=== PATIENT | male | born 1990 | race Caucasian/White ===

== ENCOUNTER 2017-05-17 23:27 | Observation (INO) | payer OTHER ==
--- NOTE | 2017-05-18 00:54 | EDM.PDOC ---
ED HPI GENERAL MEDICAL PROBLEM - General Chief Complaint: General Stated Complaint: tingly,palpatations Time Seen by Provider: 05/17/17 23:50 Source of Information: Reports: Patient - History of Present Illness INITIAL COMMENTS - FREE TEXT/NARRATIVE: 26-year-old male office presents to emergency room with complaints of sensorimotor symptoms, shaking and/or spasming in his arms and legs. No loss of consciousness, abrupt mental status changes briefly and shaking of his extremities. He symptoms began approximately 11:00 this evening. This was witnessed by another officer he was talking to while vehicles were part. Patient initially thought he felt some chest pain or discomfort which would be brief and would also experience some brief episodes where he could not remember. He is otherwise very healthy. He does not take any medications on a regular basis. He does report that he's had a lot of stress as of recently. He does not smoke and does not drink on a regular basis. He denies any recent trauma or head trauma no history of concussions in the past. He has no history of a seizure disorder. No significant cardiac history in his family his mother' s or father's side. Onset: Today, Sudden Onset Date: 05/18/17 Onset Time: 23:00 Duration: Minutes: Location: Reports: Generalized Quality: Reports: Sharp Severity: Moderate Improves with: Reports: None Worsens with: Reports: None Associated Symptoms: Reports: Chest Pain, Nausea/Vomiting, Seizure, Other ( tingling). Denies: Shortness of Breath, Syncope - Related Data Allergies Allergy/AdvReac Type Severity Reaction Status Date / Time Sulfa (Sulfonamide Allergy Cannot Verified 05/17/17 23:58 Antibiotics) Remember Home Meds: Home Meds . [No Known Home Meds] 05/17/17 [History] ED ROS GENERAL - Review of Systems Review Of Systems: See Below Constitutional: Reports: No Symptoms HEENT: Reports: No Symptoms Respiratory: Reports: No Symptoms Cardiovascular: Reports: Chest Pain Endocrine: Reports: No Symptoms GI/Abdominal: Reports: Nausea : Reports: No Symptoms Musculoskeletal: Reports: Other (muscle spasm, jerking) Skin: Reports: No Symptoms Neurological: Reports: Headache, Seizure, Tingling, Tremors, Trouble Speaking Psychiatric: Reports: No Symptoms Hematologic/Lymphatic: Reports: No Symptoms Immunologic: Reports: No Symptoms ED EXAM, GENERAL - Physical Exam Exam: See Below Exam Limited By: Altered Mental Status General Appearance: Alert, WD/WN, No Apparent Distress Eye Exam: Bilateral Eye: EOMI, PERRL Ears: Hearing Grossly Normal Nose: Normal Inspection Throat/Mouth: Normal Inspection, Normal Lips, Normal Teeth, Normal Oropharynx, Normal Voice, No Airway Compromise Head: Atraumatic, Normocephalic Neck: Normal Inspection, Supple, Full Range of Motion Respiratory/Chest: No Respiratory Distress, Lungs Clear Cardiovascular: Normal Peripheral Pulses, Regular Rate, Rhythm Peripheral Pulses: 2+: Carotid (L), Carotid (R), Radial (L), Radial (R), Dorsalis Pedis (L), Dorsalis Pedis (R) GI/Abdominal: Normal Bowel Sounds, Soft, Non-Tender Back Exam: Normal Inspection Extremities: Normal Inspection, Normal Capillary Refill Neurological: Alert, CN II-XII Intact, No Motor/Sensory Deficits, Slow to Respond, Memory Loss Remote Events Psychiatric: Normal Affect, Normal Mood Skin Exam: Warm, Dry, Intact, Normal Color Lymphatic: No Adenopathy EKG INTERPRETATION EKG Date: 05/18/17 Time: 00:30 Rhythm: NSR [place]: Normal P-Wave: Present QRS: Normal ST-T: Normal QT: Normal Comparison: No Change EKG Interpretation Comments: Normal sinus rhythm Course - Vital Signs Last Recorded V/S: Last Vital Signs Temp 99.4 F 05/17/17 23:30 Pulse 88 05/17/17 23:30 Resp 18 05/17/17 23:30 BP 152/70 H 05/17/17 23:30 Pulse Ox 99 05/17/17 23:30 - Orders/Labs/Meds Orders: Active Orders 24 hr Category Date Time Status Patient Status [ADT] Routine ADT 05/18/17 01:55 Ordered EKG Documentation Completion [RC] ASDIRECTED Care 05/18/17 00:23 Active Vital Signs [RC] Q4H Care 05/18/17 01:55 Ordered Vital Signs [RC] Q4H Care 05/18/17 01:59 Ordered Regular Diet [DIET] Diet 05/18/17 Breakfast Ordered Head wo Cont [CT] Stat Exams 05/18/17 00:12 Taken Acetaminophen [Tylenol] Med 05/18/17 01:59 Ordered 650 mg PO Q4H PRN Calcium Carbonate [Tums] Med 05/18/17 01:59 Ordered 500 mg PO Q4H PRN Magnesium Hydroxide [Milk of Magnesia] Med 05/18/17 01:59 Ordered 30 ml PO BID PRN EKG 12 Lead [EK] Routine Ther 05/18/17 00:22 Ordered Medication Orders Acetaminophen (Tylenol) 650 mg PO Q4H PRN PRN Reason: analgesia/fever Calcium Carbonate/Glycine (Tums) 500 mg PO Q4H PRN PRN Reason: Dyspepsia Magnesium Hydroxide (Milk Of Magnesia) 30 ml PO BID PRN PRN Reason: Constipation Labs: Laboratory Tests 05/18/17 05/18/17 05/18/17 Range/Units 00:30 00:30 00:30 WBC 12.1 H (5.0-10.0) 10^3/uL RBC 4.51 (4.50-6.00) 10^6/uL Hgb 13.3 (13.0-17.0) g/dL Hct 40.0 (40.0-52.0) % MCV 88.8 (82.0-92.0) fL MCH 29.6 (27.0-31.0) pg MCHC 33.3 (32.0-36.0) g/dL RDW 11.8 (11.5-14.5) % Plt Count 205 (150-300) 10^3/uL MPV 9.6 (7.4-10.4) fL Neut % (Auto) 64.3 (50.0-70.0) % Lymph % (Auto) 25.6 (20.0-40.0) % Richardson % (Auto) 5.8 (2.0-8.0) % Eos % (Auto) 3.8 H (1.0-3.0) % Baso % (Auto) 0.5 (0.0-1.0) % Neut # (Auto) 7.7 H (2.5-7.0) 10^3/uL Lymph # (Auto) 3.1 (1.0-4.0) 10^3/uL Richardson # (Auto) 0.7 (0.1-0.8) 10^3/uL Eos # (Auto) 0.5 H (0.1-0.3) 10^3/uL Baso # (Auto) 0.1 (0.0-0.1) 10^3/uL D-Dimer, Quantitative 234 (<400) ng/mL Sodium 143 (136-145) mmol/L Potassium 3.5 (3.3-5.3) mmol/L Chloride 104 (98-115) mmol/L Carbon Dioxide 25.5 (21.0-32.0) mmol/L BUN 18 (6-25) mg/dL Creatinine 1.16 (0.51-1.17) mg/dL Est Cr Clr Drug Dosing 105.92 mL/min Estimated GFR (MDRD) > 60 mL/min Glucose 107 (70-110) mg/dL Calcium 9.4 (8.7-10.3) mg/dL Troponin I < 0.04 (0.00-0.070) ng/mL Meds: Medications Generic Name Dose Route Start Last Admin Trade Name Freq PRN Reason Stop Dose Admin Acetaminophen 650 mg 05/18/17 01:59 Tylenol PO Q4H PRN analgesia/fever Calcium Carbonate/Glycine 500 mg 05/18/17 01:59 Tums PO Q4H PRN Dyspepsia Magnesium Hydroxide 30 ml 05/18/17 01:59 Milk Of Magnesia PO BID PRN Constipation Discontinued Medications Generic Name Dose Route Start Last Admin Trade Name Freq PRN Reason Stop Dose Admin Acetaminophen 1,000 mg 05/18/17 00:59 05/18/17 01:19 Tylenol Extra Strength PO 05/18/17 01:00 1,000 mg ONETIME ONE Administration Lorazepam 1 mg 05/18/17 01:00 05/18/17 01:17 Ativan IVPUSH 05/18/17 01:01 1 mg ONETIME ONE Administration Lorazepam 1 mg 05/18/17 01:45 05/18/17 01:59 Ativan IVPUSH 05/18/17 01:46 1 mg ONETIME ONE Administration Ondansetron HCl 4 mg 05/18/17 01:00 05/18/17 01:00 Zofran IVPUSH 05/18/17 01:01 4 mg ONETIME ONE Administration - Radiology Interpretation Free Text/Narrative:: CT of the head without IV contrast Findings: Brain unremarkable. No hemorrhage. No significant white matter disease. No edema Ventricles unremarkable Bones and joints unremarkable no acute fracture Soft tissues unremarkable Sinuses mild mucosal thickening in left maxillary, frontal and anterior ethmoid sinuses Mastoid air cells are unremarkable Impression: No acute findings Departure - Departure Time of Disposition: 02:10 Disposition: Refer to Observation Condition: Good Clinical Impression: Seizure disorder, complex partial Qualifiers: Epilepsy type: partial symptomatic Intractability: not intractable Status epilepticus: without status epilepticus Qualified Code(s): G40.209 - Localization-related (focal) (partial) symptomatic epilepsy and epileptic syndromes with complex partial seizures, not intractable, without status epilepticus - Discharge Information Forms: ED Department Discharge - My Orders Last 24 Hours: My Active Orders 05/18/17 00:12 Head wo Cont [CT] Stat 05/18/17 00:22 EKG 12 Lead [EK] Routine 05/18/17 00:23 EKG Documentation Completion [RC] ASDIRECTED 05/18/17 01:55 Patient Status [ADT] Routine Vital Signs [RC] Q4H 05/18/17 01:59 Vital Signs [RC] Q4H Acetaminophen [Tylenol] 650 mg PO Q4H PRN Calcium Carbonate [Tums] 500 mg PO Q4H PRN Magnesium Hydroxide [Milk of Magnesia] 30 ml PO BID PRN 05/18/17 Breakfast Regular Diet [DIET] - Assessment/Plan Last 24 Hours: My Active Orders 05/18/17 00:12 Head wo Cont [CT] Stat 05/18/17 00:22 EKG 12 Lead [EK] Routine 05/18/17 00:23 EKG Documentation Completion [RC] ASDIRECTED 05/18/17 01:55 Patient Status [ADT] Routine Vital Signs [RC] Q4H 05/18/17 01:59 Vital Signs [RC] Q4H Acetaminophen [Tylenol] 650 mg PO Q4H PRN Calcium Carbonate [Tums] 500 mg PO Q4H PRN Magnesium Hydroxide [Milk of Magnesia] 30 ml PO BID PRN 05/18/17 Breakfast Regular Diet [DIET] Assessment:: Complex partial seizure Plan: 1. Replaced patient on observation status. This is a new onset of seizure no prior history of seizure disorder. Patient has not had complete resolve of symptoms. 2. Will proceed with neurology consultation and likely EEG. 3. We'll begin him on a benzodiazepine as a first line for treatment of this seizure.
[2017-05-18] MEDS ORDERED: Acetaminophen 500 MG Tab PO ONE (00:59)
[2017-05-18] MEDS ORDERED: LORazepam 2 MG/ML SDV IVPUSH ONE ×3 (01:00→10:18)
[2017-05-18] MEDS ORDERED: Ondansetron 4 MG/2 ML SDV IVPUSH ONE (01:00)
[2017-05-18 01:09] LABS: CHLORIDE,CL 104 mmol/L (98-115); SODIUM,NA 143 mmol/L (136-145)
[2017-05-18] MEDS ORDERED: Calcium Carbonate 500 MG Tab.Chew PO PRN (01:59)
[2017-05-18] MEDS ORDERED: Acetaminophen 325 MG Tab PO PRN (01:59)
[2017-05-18] MEDS ORDERED: Magnesium Hydroxide 400 MG/5 ML Susp 30 ML Cup PO PRN (01:59)
[2017-05-18] MEDS ORDERED: LORazepam 2 MG/ML SDV IVPUSH PRN (02:57)
[2017-05-18] MEDS ORDERED: Sodium Chloride 0.9% 5 ML Syringe FLUSH PRN (04:18)
[2017-05-18] MEDS ORDERED: Phenytoin 100 MG Cap.ER PO ONE (11:31)
--- NOTE | 2017-05-18 12:27 | PCM.PN ---
- General Info Date of Service: 05/18/17 Admission Dx/Problem (Free Text): seizure disorder Functional Status: Reports: Pain Controlled, Tolerating Diet, Ambulating, Urinating - Review of Systems General: Reports: No Symptoms HEENT: Reports: No Symptoms Pulmonary: Reports: No Symptoms Cardiovascular: Reports: No Symptoms Gastrointestinal: Reports: No Symptoms Genitourinary: Reports: No Symptoms Musculoskeletal: Reports: No Symptoms Skin: Reports: No Symptoms Neurological: Reports: Seizure (better this am. sleep well), Tingling. Denies: Confusion, Dizziness, Trouble Speaking, Change in Speech Psychiatric: Reports: No Symptoms - Patient Data Vitals - Most Recent: Last Vital Signs Temp 96.9 F 05/18/17 11:00 Pulse 84 05/18/17 11:00 Resp 20 05/18/17 11:00 BP 116/67 05/18/17 11:00 Pulse Ox 96 05/18/17 11:00 Weight - Most Recent: 205 lb 5 oz I&O - Last 24 Hours: Intake & Output 05/17/17 05/18/17 05/18/17 22:59 06:59 14:59 Intake Total 0 Balance 0 Med Orders - Current: Current Medications Acetaminophen (Tylenol) 650 mg PO Q4H PRN PRN Reason: analgesia/fever Last Admin: 05/18/17 10:34 Dose: 650 mg Calcium Carbonate/Glycine (Tums) 500 mg PO Q4H PRN PRN Reason: Dyspepsia Lorazepam (Ativan) 0.5 mg IVPUSH Q6H PRN PRN Reason: Seizures Magnesium Hydroxide (Milk Of Magnesia) 30 ml PO BID PRN PRN Reason: Constipation Sodium Chloride (Syrex Flush) 5 ml FLUSH Q8HR PRN PRN Reason: Keep Vein Open Discontinued Medications Acetaminophen (Tylenol Extra Strength) 1,000 mg PO ONETIME ONE Stop: 05/18/17 01:00 Last Admin: 05/18/17 01:19 Dose: 1,000 mg Lorazepam (Ativan) 1 mg IVPUSH ONETIME ONE Stop: 05/18/17 01:01 Last Admin: 05/18/17 01:17 Dose: 1 mg Lorazepam (Ativan) 1 mg IVPUSH ONETIME ONE Stop: 05/18/17 01:46 Last Admin: 05/18/17 01:59 Dose: 1 mg Lorazepam (Ativan) 1 mg IVPUSH ONETIME ONE Stop: 05/18/17 10:19 Last Admin: 05/18/17 10:36 Dose: 1 mg Ondansetron HCl (Zofran) 4 mg IVPUSH ONETIME ONE Stop: 05/18/17 01:01 Last Admin: 05/18/17 01:00 Dose: 4 mg Phenytoin Sodium (Phenytoin) 400 mg PO ONETIME ONE Stop: 05/18/17 11:32 Last Admin: 05/18/17 12:00 Dose: 400 mg - Exam General: Alert, Oriented, No Acute Distress HEENT: Pupils Equal, EOMI Neck: Supple Lungs: Clear to Auscultation Cardiovascular: Regular Rate, Regular Rhythm GI/Abdominal Exam: Soft Back Exam: Normal Inspection Extremities: Normal Inspection Peripheral Pulses: 2+: Dorsalis Pedis (L), Dorsalis Pedis (R) Skin: Warm, Dry, Intact Neurological: No New Focal Deficit Psy/Mental Status: Alert, Normal Affect, Normal Mood - Problem List Review Problem List Initiated/Reviewed/Updated: Yes - My Orders Last 24 Hours: My Active Orders 05/17/17 23:35 EKG 12 Lead [EK] Routine 05/18/17 01:59 Acetaminophen [Tylenol] 650 mg PO Q4H PRN Calcium Carbonate [Tums] 500 mg PO Q4H PRN Magnesium Hydroxide [Milk of Magnesia] 30 ml PO BID PRN 05/18/17 02:57 LORazepam [Ativan] 0.5 mg IVPUSH Q6H PRN 05/18/17 04:18 Sodium Chloride 0.9% [Syrex Flush] 5 ml FLUSH Q8HR PRN 05/18/17 Breakfast Regular Diet [DIET] - Assessment Assessment:: seizure - Plan Plan:: 1. Given 1mg iv lorazepam this am. Did not get in prn last night. Symtoms improved. Will start on phenytoin 400mg initially today, than 100mg TID beginning tomorrow. Will continue lorazepam 0.5mg po Q8hrs 2. F/u with Dr Martin on Saturday and Neurology consult with EEG. 3. Discharge today if seizures resolved. 4. No driving until f/u appointments. 5. Rest over weekend.
[2017-05-18] MEDS ORDERED: LORazepam 0.5 MG Tab PO PRN (13:00)
[2017-05-18] MEDS: Phenytoin 100 MG Cap.ER PO SCH (15:40)
[2017-05-18] MEDS ORDERED: LORazepam 0.5 MG Tab ONE (15:58)
== END 2017-05-18 16:40 | disposition home or self-care (01) ==
LOC: KA.ED 23:27 → KA.MS 05-18 01:55 → UNDOADMOB 05-18 01:55 → UNDODISOB 05-18 16:40
PROVIDERS: ADMIT Physician Assistant; ATTEND Physician Assistant
DX: G40.209 Localization-related (focal) (partial) symptomatic epilepsy and epileptic syndromes with complex partial seizures, not intractable, without status epilepticus (principal); Z88.2 Allergy status to sulfonamides; Z79.899 Other long term (current) drug therapy
CPT/HCPCS: 70450; 80048; 84484; 85025; 85379; 93005; 96374; 96375; 96376; 99285; A9270; G0378; J2060; J2405

== ENCOUNTER 2024-11-23 22:59 | Emergency (ER) | payer OTHER ==
[2024-11-23] MEDS ORDERED: Sodium Chloride 0.9% 10 ML Syringe FLUSH PRN (23:03)
[2024-11-23 23:32] LABS: BASOPHILS ABSOLUTE AUTO 0.06 10^3/uL (0.00-0.10); BASOPHILS PERCENT AUTO 0.7 % (0.0-1.0); EOSINOPHILS ABSOLUTE AUTO 0.35 10^3/uL (0.10-0.30); EOSINOPHILS PERCENT AUTO 4.2 % (1.0-3.0); HEMATOCRIT 40.7 % (40.0-52.0); HEMOGLOBIN 13.5 g/dL (13.0-17.0); IMMATURE GRAN ABSOLUTE AUTO 0.09 10^3/uL (0.00-0.04); IMMATURE GRAN PERCENT AUTO 1.1 % (0.0-0.4); LYMPHOCYTES ABSOLUTE AUTO 3.57 10^3/uL (1.00-4.00); LYMPHOCYTES PERCENT AUTO 42.9 % (20.0-40.0); MEAN CORPUSCULAR HEMOGLOBIN 29.4 pg (27.0-31.0); MEAN CORPUSCULAR HGB CONC 33.2 g/dL (32.0-36.0); MEAN CORPUSCULAR VOLUME 88.7 fL (82.0-92.0); MEAN PLATELET VOLUME 10.9 fL (7.4-10.4); MONOCYTES ABSOLUTE AUTO 0.64 10^3/uL (0.10-0.80); MONOCYTES PERCENT AUTO 7.7 % (2.0-8.0); NEUTROPHILS ABSOLUTE AUTO 3.62 10^3/uL (2.50-7.00); NEUTROPHILS PERCENT AUTO 43.4 % (50.0-70.0); PLATELET COUNT,PLT 213 10^3/uL (150-400); RED BLOOD CELL COUNT 4.59 10^6/uL (4.50-6.00); RED CELL DISTRIBUTION WIDTH 11.9 % (11.5-14.5); WHITE BLOOD CELL COUNT,WBC 8.33 10^3/uL (5.00-10.00)
[2024-11-23 23:43] LABS: AMPHETAMINES SCREEN, URINE NEGATIVE (NEGATIVE); BARBITURATE SCREEN,URINE NEGATIVE (NEGATIVE); BENZODIAZEPINES SCREEN,URINE NEGATIVE (NEGATIVE); COCAINE METABOLITES,URINE NEGATIVE (NEGATIVE); METHADONE SCREEN, URINE NEGATIVE (NEGATIVE); METHAMPHETAMINES SCREEN, URINE NEGATIVE (NEGATIVE); OXYCODONE SCREEN,URINE NEGATIVE (NEGATIVE); PCP SCREEN,URINE NEGATIVE (NEGATIVE); TCA SCREEN,URINE NEGATIVE (NEGATIVE); THC SCREEN,URINE 50 NG/ML NEGATIVE (NEGATIVE)
[2024-11-23 23:49] LABS: ANION GAP 14.1 mmol/L (5-15); CALCIUM 9.5 mg/dL (8.7-10.3); CREATININE 1.06 mg/dL (0.51-1.17); EST CRCL DRUG DOSING (CG) 107.78 mL/min; POTASSIUM,K 4.1 mmol/L (3.5-5.1)
[2024-11-23 23:50] LABS: ALBUMIN 4.33 g/dL (3.40-5.00); BILIRUBIN TOTAL 0.3 mg/dL (0.2-1.0); PROTEIN TOTAL,TP 7.7 g/dL (6.4-8.2)
== END 2024-11-24 00:10 | disposition home or self-care (01) ==
LOC: KA.ED 22:59
DX: R07.89 Other chest pain (principal); R06.02 Shortness of breath; Z88.2 Allergy status to sulfonamides
CPT/HCPCS: 36415; 71045; 80053; 80305-QW; 84484; 85025; 93010; 99284; 99285